=== PATIENT | male | born 1970 | race Caucasian/White ===

== ENCOUNTER 2022-05-06 20:50 | Emergency (ER) | payer MEDICAID ==
[~2022-05-06] VITALS: Ht 172.7 cm; Wt 72.6 kg
[2022-05-06 21:25] VITALS: BP 138/78
--- NOTE | 2022-05-06 21:30 | NUR ---
TO LOBBY FOLLOWING TRIAGE
--- NOTE | 2022-05-06 23:15 | NUR ---
pt taken bed 9
[2022-05-06] MEDS ORDERED: IBUP-2213 PO (23:24)
[2022-05-06] MEDS ORDERED: ACET-8386 PO (23:24)
--- NOTE | 2022-05-06 23:37 | NUR ---
Patient discharged with v/s stable. Written and verbal after care instructions given and explained. Patient alert, oriented and verbalized understanding of instructions. Ambulatory with steady gait. All questions addressed prior to discharge. ID band removed. Patient advised to follow up with PMD. Rx of motrin and norco given. Patient educated on indication of medication including possible reaction and side effects. Opportunity to ask questions provided and answered.
== END 2022-05-06 23:37 | disposition home or self-care (01) ==
LOC: MED 20:50
DX: S86.012A Strain of left Achilles tendon, initial encounter (principal); Z88.6 Allergy status to analgesic agent; X58.XXXA Exposure to other specified factors, initial encounter; Y93.89 Activity, other specified; Y92.89 Other specified places as the place of occurrence of the external cause; Y99.8 Other external cause status
CPT/HCPCS: 29515; 99283